=== PATIENT | male | born 1965 | race Caucasian/White ===

== ENCOUNTER 2018-02-01 08:48 | Emergency (ER) | payer MEDICAID ==
[~2018-02-01] VITALS: Ht 177.8 cm; Wt 92.1 kg
[2018-02-01 09:01] VITALS: Ht 177.8 cm; Wt 92.1 kg
[2018-02-01 11:35] VITALS: BP 113/67
== END 2018-02-01 11:35 | disposition home or self-care (01) ==
LOC: ED 08:48
DX: M48.36 Traumatic spondylopathy, lumbar region (principal); E78.00 Pure hypercholesterolemia, unspecified

== ENCOUNTER 2018-12-30 21:25 | Emergency (ER) | payer MEDICAID ==
[~2018-12-30] VITALS: Ht 172.7 cm; Wt 96.2 kg
[2018-12-30 21:30] VITALS: Ht 172.7 cm; Wt 96.2 kg
[2018-12-30 22:05] LABS: BASOPHIL % 0.5 % (0-2); PLATELET COUNT 262 x10^3mcL (130-400)
[2018-12-30 22:15] LABS: CALCIUM 8.2 mg/dL (8.5-10.1); CARBON DIOXIDE 27.8 mmol/L (21-32); CHLORIDE SERUM 101 mmol/L (98-107); CREATININE SERUM 0.8 mg/dL (0.7-1.3); GFR1 > 60 mL/min; GLUCOSE SERUM 95 mg/dL (74-106); POTASSIUM SERUM 3.7 mmol/L (3.5-5.1); SODIUM SERUM 136 mmol/L (136-145)
[2018-12-30 22:19] LABS: ALBUMIN 2.9 g/dL (3.4-5.0); ALKALINE PHOSPHATASE 69 U/L (46-116); ALT/SGPT 35 U/L (16-63); AST/SGOT 32 U/L (15-37); BILIRUBIN TOTAL 0.42 mg/dL (0.20-1.00); CHOLESTEROL 183 mg/dL (<200); HDL CHOLESTEROL 50 mg/dL (40-60); PHOSPHOROUS 3.3 mg/dL (2.5-4.9); TOTAL PROTEIN, SERUM 6.1 g/dL (6.4-8.2); URIC ACID 7.9 mg/dL (3.5-7.2)
[2018-12-30 22:41] LABS: AMPHETAMINE QUAL UR POSITIVE (See below)
[2018-12-30 23:42] VITALS: BP 128/71
== END 2018-12-30 23:45 | disposition home or self-care (01) ==
LOC: ED 21:25
PROVIDERS: Emergency Medicine
DX: R07.89 Other chest pain (principal); R00.2 Palpitations; R05 Cough; R09.89 Other specified symptoms and signs involving the circulatory and respiratory systems; E78.00 Pure hypercholesterolemia, unspecified
CPT/HCPCS: 36415; Q0092